=== PATIENT | male | born 1940 | race Two or more races ===

== ENCOUNTER 2024-05-31 12:43 | Inpatient (IN) | payer MEDICARE, BC, SELFPAY ==
[2024-05-31] VITALS (26 sets, daily range): BP systolic 79–135; BP diastolic 45–76; BMI 29.5
--- NOTE | 2024-05-31 11:12 | CON.CAR ---
Consultation
Consultation Request
Date/Time Consultation Performed: 05/31/24 1115AM
Performing Provider: ROSY Abel for Mark Gamboa MD
Reason for Consultation: non reversible symptomatic bradycardia, syncope
Medical History
-
Chief Complaint: bradycardia, syncope
History of Present Illness:
PCP: Rosita Barroso MD ([facility])
CDY: Marques Leong MD ([facility])
HPI: This is an 84 y/o [place]ian male, PMH sig for Chronic diastolic HFpEF 55-60%, HTN, HLD, RLD, Tracheomalacia, obesity.
Presented to [facility] ED after a syncopal episode at home. He was walking with walker and got dizzy, then passed out and fell backwards. He was unresponsive and EMS was called. Regained consciousness and denies any prior symptoms, including
cp/palps/dyspnea/sob/abdominal pain. In ED, EKG shows AFib 60s, which is new for this patient. Head CT with left mastoiditis but otherwise unremarkable.
While on tele, HR dropping to 20-30s, BP 60s, with associated weakness/fatigue/dyspnea at rest. Started on low dose dopamine with improvement of vitals and symptoms. Unable to wean off dopamine. Transferred now for PPM implant.
Echo 2/6- nml LVSF, EF 55-60%, no WMA, mild CLVH, mild dil RA, mod dil LA, mod TR, PASP 50, mod MAC w/trace MR
Past Medical History
Past Medical History: Arrhythmias (New onset AFib), CHF (Diastolic), HTN, Hypercholesterolemia, Hypothyroidism and Other (Restrictive lung disease, tracheomalacia, BLE edema, Pre-DM)
Past Surgical History: None
Social History
Tobacco: Non-Smoker
Alcohol: None
Drug: None
Living: With Family
Family History
Family History: Reviewed & Not Pertinent
Allergies / Home Medications
Allergy/AdvReac Type Severity Reaction Status Date / Time
No Known Allergies Allergy Verified 05/31/24 10:57
�Medication �Instructions �Recorded �Confirmed �Type
acetaminophen 500 mg capsule 500 mg PO DAILYPRN PRN pain score 05/31/24 05/31/24 History
1-3
albuterol sulfate 90 mcg/actuation 2 inh inhalation QID PRN 05/31/24 05/31/24 History
breath activated powder inhaler bronchospasm
(ProAir RespiClick)
atenolol 25 mg tablet 25 mg PO DAILY 05/31/24 05/31/24 History
atorvastatin 20 mg tablet 20 mg PO HS 05/31/24 05/31/24 History
cholecalciferol (vitamin D3) 50 50 mcg PO DAILY 05/31/24 05/31/24 History
mcg (2,000 unit) tablet
cyanocobalamin (vitamin B-12) 1,000 mcg PO DAILY 05/31/24 05/31/24 History
1,000 mcg tablet (Vitamin B-12)
esomeprazole magnesium 40 mg 40 mg PO DAILY 05/31/24 05/31/24 History
capsule,delayed release
fluticasone furoate 200 1 inh inhalation DAILY 05/31/24 05/31/24 History
mcg/actuation blister powder for
inhalation
furosemide 40 mg tablet 40 mg PO MOWEFR 05/31/24 05/31/24 History
gabapentin 100 mg capsule 100 mg PO DAILY 05/31/24 05/31/24 History
iron, carbonyl 45 mg tablet 45 mg PO DAILY 05/31/24 05/31/24 History
multivitamin with minerals-folic 1 tab PO DAILY 05/31/24 05/31/24 History
acid 80 mcg chewable tablet
(Centrum Adult 50 Plus)
polyethylene glycol 3350 17 gram 17 g PO DAILY 05/31/24 05/31/24 History
oral powder packet (Miralax)
spironolactone 50 mg tablet 50 mg PO DAILY 05/31/24 05/31/24 History
valsartan 160 mg tablet 160 mg PO BID 05/31/24 05/31/24 History
Review of Systems
-
History Source: Patient
All other systems: Negative unless noted
Constitutional: No Symptoms
EENT: No Symptoms
Respiratory: No Symptoms
Cardiac: No Symptoms
Abdomen/GI: No Symptoms
: No Symptoms
Musculoskeletal: No Symptoms
Skin: No Symptoms
Neurological: No Symptoms
Endocrine: No Symptoms
Hematologic/Lymphatic: No Symptoms
Physical Exam
Vital Signs
Vital Signs
Temp Pulse Resp BP Pulse Ox
97.4 F 73 18 118/56 97
05/31/24 11:05 05/31/24 11:22 05/31/24 11:22 05/31/24 11:22 05/31/24 11:15
Lab Results
05/31/24:
NA 130
K+ 4.3
BUN 16
Creat 0.72
Glucose 112
GFR >60
Pro BNP 1752
WBC 8.4
Hgb 12.0
Hct 35.2
Plt 173
Physical Exam
General: Well Developed and No Apparent Distress
HEENT: Normocephalic and Moist Mucous Membranes
Respiratory: Other (Scattered wheeze/rhonchi bilaterally, non labored)
Cardiac: S1/S2 and Irregular Rhythm
GI: Soft, Non Tender and Normal Bowel Sounds
Musculoskeletal: Edema (+1-2 bilat, non pitting)
Skin: Warm and Dry
Neuro: AO x 3
Psych: Calm
Impression / Plan
-
PCP: Rosita Barroso MD ([facility])
CDY: Marques Leong MD ([facility])
HPI: This is an 84 y/o [place]ian male, PMH sig for Chronic diastolic HFpEF 55-60%, HTN, HLD, Restrictive lung disease, tracheomalacia, obesity.
Presented to [facility] ED after a syncopal episode at home. He was walking with walker and got dizzy, then passed out and fell backwards. He was unresponsive and EMS was called. Regained consciousness and denies any prior symptoms, including
cp/palps/dyspnea/sob/abdominal pain. In ED, EKG shows AFib 60s, which is new for this patient. Head CT with left mastoiditis but otherwise unremarkable.
While on tele, HR dropping to 20-30s, BP 60s, with associated weakness/fatigue/dyspnea at rest. Started on low dose dopamine with improvement of vitals and symptoms. Unable to wean off dopamine. Transferred now for PPM implant.
IMPRESSION:
Syncope and collapse
Non reversible symptomatic bradycardia
New onset AFib
Chronic diastolic HFpEF
Chronic BLE edema
HTN
HLD
Pre-DM
Hyponatremia
Restrictive Lung Disease
Tracheomalacia
Sleep apnea
PLAN:
Syncope/Non reversible symptomatic bradycardia
HR 20s/BP 60s on dopamine- unable to wean off
dual chamber PPM implant today
NPO for now
hold atenolol until device implanted
incision check at [facility] next Monday, then follow with Dr. Leong thereafter
New onset AFib
[id number]
will need OAC at discharge- hold til after device implant
consider outpt cardioversion in a month per primary cards
Chronic diastolic HFpEF/chronic LE edema
stable on GDMT, will continue
+1-2 edema today with elevated PASP on echo- consider increasing lasix to daily
monitor lytes, chronic stable hyponatremia
Data Reviewed
-
EKG: Tracing Personally Visualized and interpreted
CT Scan: Report Reviewed by me
Medical Tests (Nuc Med, Echo etc): Report Reviewed by me
Labs: Labs Reviewed by me
Old Records: Reviewed
--- NOTE | 2024-05-31 12:48 | HPS.HSE ---
Family Physician
-
Family Physician: NO INTERVIEW UNKNOWN
Chief Complaint
-
syncope
History of Present Illness
84-year-old male past medical history of chronic HFpEF, hypertension, hyperlipidemia, restrictive lung disease, tracheomalacia, obstructive sleep apnea, obesity, GERD, chronic hyponatremia, prediabetes presented to [facility] [place] 2 days ago for
syncopal episode at home. He was walking with walker and got dizzy and passed out and fell backwards. EMS was called. Denied any chest pain or shortness of breath or nausea or vomiting or sweating or abdominal pain. In the emergency room he was
found to be in new onset atrial fibrillation with heart rate of 60s. While on telemetry his heart rate dropped to 20s to 30s blood pressure of 60s systolic with associated weakness and fatigue and shortness of breath. Started on dopamine drip with
improvement in symptoms. Dopamine was unable to be weaned off. He was transferred to [facility] for pacemaker.
He has had increased lower extremity edema but no weight gain.
He is complaining of pain in his legs bilaterally.
He denies any symptoms currently.
He drinks alcohol socially. Denies smoking.
His father had history of heart disease.
Medical History
Past Medical History
Past Medical History: Reports Other (chronic HFpEF, hypertension, hyperlipidemia, restrictive lung disease, tracheomalacia, obstructive sleep apnea, obesity, GERD, chronic hyponatremia, prediabetes )
Past Surgical History: Reports None
Social History
Tobacco: Non-smoker
Alcohol: Occasional
Drug: None
Family History
Family History: Not pertinent
Allergies / Home Medications
Allergies reflects when Allergies were last updated in [facility].
Home Medications with original date entered in [facility]
Allergy/Medication List:
Allergies
Allergy/AdvReac Type Severity Reaction Status Date / Time
No Known Allergies Allergy Verified 05/31/24 10:57
Home Medications
acetaminophen 500 mg capsule 500 mg PO DAILYPRN PRN pain score 1-3 05/31/24
albuterol sulfate 90 mcg/actuation breath activated powder inhaler (ProAir RespiClick) 2 inh inhalation QID PRN bronchospasm 05/31/24
atenolol 25 mg tablet 25 mg PO DAILY 05/31/24
atorvastatin 20 mg tablet 20 mg PO HS 05/31/24
cholecalciferol (vitamin D3) 50 mcg (2,000 unit) tablet 50 mcg PO DAILY 05/31/24
cyanocobalamin (vitamin B-12) 1,000 mcg tablet (Vitamin B-12) 1,000 mcg PO DAILY 05/31/24
esomeprazole magnesium 40 mg capsule,delayed release 40 mg PO DAILY 05/31/24
fluticasone furoate 200 mcg/actuation blister powder for inhalation 1 inh inhalation DAILY 05/31/24
furosemide 40 mg tablet 40 mg PO MOWEFR 05/31/24
gabapentin 100 mg capsule 100 mg PO DAILY 05/31/24
iron, carbonyl 45 mg tablet 45 mg PO DAILY 05/31/24
multivitamin with minerals-folic acid 80 mcg chewable tablet (Centrum Adult 50 Plus) 1 tab PO DAILY 05/31/24
polyethylene glycol 3350 17 gram oral powder packet (Miralax) 17 g PO DAILY 05/31/24
spironolactone 50 mg tablet 50 mg PO DAILY 05/31/24
valsartan 160 mg tablet 160 mg PO BID 05/31/24
Review of Systems
-
History Source: Patient
A 12 point ROS was completed and negative except as noted: Yes
Constitutional: Reports No Symptoms
EENT: Reports No Symptoms
Respiratory: Reports No Symptoms
Cardiac: Reports No Symptoms
Abdomen/GI: Reports No Symptoms
: Reports No Symptoms
Musculoskeletal: Reports No Symptoms
Skin: Reports No Symptoms
Neurological: Reports No Symptoms
Endocrine: Reports No Symptoms
Hematologic/Lymphatic: Reports No Symptoms
Psych: Reports No Symptoms
Physical Exam
Vital Signs
Vital Signs
Temp Pulse Resp BP Pulse Ox
97.4 F 73 18 118/56 97
05/31/24 11:05 05/31/24 11:22 05/31/24 11:22 05/31/24 11:22 05/31/24 11:15
Physical Exam
General: Well Developed, Well Nourished and No Apparent Distress
HEENT: NormoCephalic, Moist mucous membranes and Atraumatic
Respiratory: Clear
Cardiac: S1/S2 and Regular Rhythm; No Murmur or Rub
GI: Soft, Non Tender, Non Distended and Normal Bowel Sounds; No Organomegaly
Rectal: Deferred by Provider
Musculoskeletal: No Clubbing, No Cyanosis and No Edema
Skin: No Rash
Neuro: Nonfocal/grossly intact
Data Reviewed
-
Lab Data: Labs Reviewed by me
Old Records: Reviewed
Impression/Plan
-
IMPRESSION:
PLAN:
# Syncope secondary to persistent symptomatic bradycardia associated with hypotension
-On dopamine drip
-Plan for pacemaker shortly
-N.p.o.
-Hold atenolol
# New onset atrial fibrillation
-[id number] score of 5
-Was on heparin drip at [facility] [place], currently off
-Will need oral anticoagulation at discharge to be started after device implantation as per cardiology
# Pseudohyperkalemia
-Hemolyzed potassium on prior labs
-Check labs after pacemaker
# Mild transaminitis on lab
-Could be due to hepatic venous congestion
-Ultrasound was considered
-Noted at [place]
-Continue to monitor
Chronic HFpEF
-Resume Lasix after pacemaker implantation and off dopamine
-Resume spironolactone, valsartan, after pacemaker
Essential hypertension
-Hold spironolactone, valsartan for now
Hyperlipidemia
-Continue statin
Restrictive lung disease
Tracheomalacia
Obstructive sleep apnea
-Uses CPAP at night
Prediabetes
-Not on medication
Obesity
GERD
-Continue esomeprazole
Chronic hyponatremia
Full code
DVT prophylaxis�heparin
N.p.o.
--- NOTE | 2024-05-31 13:53 | ITS.CL.PACE ---
Addendum entered and electronically signed by Raimundo Cervantes MD 05/31/24 16:58:
Right heart catheterization findings :
HEMODYNAMIC FINDINGS (mmHg):
RA(a,v,m): *, 16, 13 patient atrial fibrillation
RV(s/d,EDP): 72/6, 16
PA(s/d/m): 72/28, 45
PCWP(a,v,m): *, 40, 24
Oxygen Saturations (mg/dl):
PA: 75% on 2 L of oxygen by nasal cannula
LV: 97% on 2 L of oxygen by nasal cannula
Cardiac Output/Index (l/min / l/min/m2):
Estimated Rosie Method: 5.0 / 3.1
Original Note:
[facility] - Pacemaker Implant
Pacemaker Implant
Procedure Report:
PACEMAKER IMPLANT REPORT
Primary Care Provider: Dr. Rosita Barroso
Primary Slag Mixer: Dr. Koffi Munoz
Date of Procedure: May 31, 2024
Procedure:
1: Implantation of dual-chamber permanent pacemaker utilizing the left bundle branch for conduction system pacing
2: Right heart catheterization
Indication/Diagnosis:
1: Non-reversible symptomatic bradycardia due to symptomatic bradycardia in the setting of new atrial fibrillation with unexplained syncope
HISTORY: The patient is a 84-year-old man who is typically followed by the [facility] office for hypertension and diastolic heart failure who presented to [facility] with syncope and was found to be in new atrial fibrillation with a
slow ventricular response. Atenolol was and the patient had persistent profound bradycardia ultimately requiring a dopamine drip to keep the heart rate and blood pressure up. He is referred for dual-chamber pacemaker placement for persistent
profound symptomatic bradycardia off rate controlling drugs.
Antibiotic: Ancef 2 g IV
Sedation: Conscious sedation per anesthesia staff
After informed consent was obtained, 'time out' was called and confirmed, the patient was prepped and draped in a sterile fashion. Lidocaine with epi was used for local anesthesia. Central venous access was obtained via subclavian venipuncture. An
incision was made along the left chest and a pre-pectoral pocket was formed. Using a Seldinger technique and peel-away sheaths, the pacing leads were placed under fluoroscopic guidance.
Fluoroscopy was used to determine likely anatomic site for left bundle branch pacing. The Medtronic C315 sheath was used to deliver the Medtronic 3830 Selectsecure pacing lead with the helix exposed just exposed from the sheath tip during continuous
monitoring when pacemapping the septum during gentle clockwise rotation to obtain a paced QRS morphology of a W pattern in lead V1. Once the suspected optimal site was identified, lead deployment was performed with several rapid rotations as paced
QRS morphology was intermittently monitored until a paced QRS complex in lead V1 demonstrated development of an R wave (qR or rSR).
Final unipolar pacing impedance is 969 ohms
Unipolar pacing threshold is stable at 1.0 V @0.4 ms.
Final conduction system paced QRS complex duration is 92 ms
LVAT is 69 ms and peak V5 -> peak V1 timing is 47 ms
Right atrial lead was placed at the RAA.
Once testing (see below) showed adequate and stable function, the leads were secured using the suture sleeves. The pocket was liberally irrigated with antibiotic solution. The leads were connected to the generator header and the leads and
generator were placed within the pocket. Fluoroscopy confirmed stable lead position. The pocket was closed in the typical fashion.
Fluoroscopy Time (min): 7.6
Radiation Dose (mGy): 3.36
DAP (Gy.cm2): 26.97
IMPLANTS:
Medtronic [id number], SN: [id number], Left Pectoral
RA: Medtronic 5076-45, SN: [id number], RAA
RV: Medtronic 3830 , SN:[id number], Interventricular septum at LBB
DEVICE TESTING:
Sensing: RA 0.8mV[afib], RV 5.6 mV
Capture: RA [afib], RV 1.0 V@0.4ms
Ohms: RA 532, RV 969
FINAL PROGRAMMING
Tyrone Pacing: AAIR+ 60-130 ppm
COMPLICATIONS: None.
CONCLUSIONS:
1: Successful implant of dual chamber permanent pacemaker utilizing Left Bundle Branch conduction system capture for pacing. Overall findings are most consistent with LBB capture.
RECOMMENDATIONS:
1. Post-op care (tele, CXR, IV abx)
2. In-Office wound check on Monday 10:45AM with Dr. Cervantes at [place] [facility]. Will plan to start eliquis Monday if pocket ok.
3. Follow-up with Dr. Koffi Munoz at [facility] office on 06/18/24 at 11:20AM.
Copy to: Dr. Rosita Barroso, Dr. Koffi Munoz
[2024-05-31 14:28] LABS: Glucose - Point of Care 104 mg/dl (70-99)
--- NOTE | 2024-05-31 16:41 | PTCARENOTE ---
Addendum entered by Alejandra Allred RN 05/31/24 16:45:
Underlying Afib is noted on the monitor
Original Note:
Received the patient from the concrete plant laborer in his bed. The patient is aaox3, vss, v-pacing is noted on the monitor. His left chest wall dressing is c/d/i. He has no complaints of pain at his PPM site. He does complain of soreness and stiffness in his BL
legs. I instructed the patient on his activity restrictions and expected oob time. I oriented him to his room and his call burns is within reach. His family is at his bedside.
--- NOTE | 2024-05-31 16:58 | CM ---
Reviewed chart. Met with Mr. Velez and his children to review discharge plans. He states prior to admission he resides with his children in a two story home with two steps to enter. He states he has a full flight of steps to get to bedroom/full
bathroom. He states he has a powder room on the first floor. He states prior to admission he was ambulation with a walker. He states he has a walker at home. He states he has had [facility] in the recent past. His family has requested to go with
a different [facility] Services. They have selected [facility]. Telephone call to [facility] to make the referral. Sent referral. Medical work-up in progress. The discharge plan is to return home with his children and [facility] when medically stable.
[2024-05-31] MEDS: HEPARIN 5000 UNITS SC (20:16)
--- NOTE | 2024-05-31 21:10 | PTCARENOTE ---
Received patient at change of shift. Patient sitting in bed, finishing dinner, oriented x3. Left side chest wall-- no ecchymosis, no swelling-- gauze and Tegaderm clean, dry, and intact. Immobilizer on. BP 109/63, A-fib with V-pacing 70s, 100% on
room air. Discussed the importance of needing to get out of bed. Patient verbalized agreement and wants to attempt to get up tonight with aide of RN. Discussed rest of plan of care for evening. Patient verbalized understanding. Call burns within
reach.
[2024-05-31] MEDS: LIPITOR 20 MG PO (22:02)
[2024-05-31] MEDS: ANCEF 5 IV (22:02)
[2024-06-01] VITALS (9 sets, daily range): BP systolic 86–124; BP diastolic 53–89; PULSE 70; O2SAT 99; BMI 33.5
--- NOTE | 2024-06-01 00:52 | PTCARENOTE ---
Pt attempted to get up to use the bathroom with the assistance of RN. Was not able to walk forward. Stood bedside with RN for a couple of minutes. Pt very weak and stiff. Discussed doing some leg exercises in bed. Patient verbalized wanting to try.
[2024-06-01 04:10] LABS: ALT (SGPT) 27 U/L (0-50); AST (SGOT) 25 U/L (17-59); Alkaline Phosphatase 107 U/L (38-126); Blood Urea Nitrogen 25 mg/dl (9-20); Calcium 9.4 mg/dl (8.4-10.2); Carbon Dioxide 23 mmol/L (22-30); Chloride 99 mmol/L (98-107); Estimated Creatinine Clearance 53 ml/min; Glucose 99 mg/dl (70-99); Potassium 5.2 mmol/L (3.5-5.1); Sodium 128 mmol/L (135-145); Total Bilirubin 0.9 mg/dl (0.2-1.3); Total Protein 5.6 g/dl (6.3-8.2); eGFR > 60.00
[2024-06-01] MEDS: ANCEF 5 IV (06:00)
[2024-06-01 06:09] LABS: % Basophils 0.2 % (0-2); % Eosinophils 0.5 % (0-6); % Immature Granulocytes 0.5 % (0-0.5); % Lymphocytes 16.5 % (20.5-51.1); % Monocytes 13.7 % (1.7-9.3); % Neutrophils 68.6 % (42.2-75.2); Absolute Lymphocytes 1.1 10^3/uL (1.2-3.4); Absolute Monocytes 0.9 10^3/uL (0.1-0.6); Absolute Neutrophils 4.4 10^3/uL (1.4-6.5); Hematocrit 30.5 % (39.0-52.0); Hemoglobin 10.5 g/dL (13.0-18.0); Mean Corp Hgb Conc. 34.4 g/dL (33.0-37.0); Mean Corpuscular Hgb 30.6 pg (27.0-31.0); Mean Corpuscular Volume 88.9 fL (80.0-94.0); Nucleated Red Blood Cells % 0 % (-); Platelet Count 151 10^3/uL (130-400); Red Blood Cell Count 3.43 10^6/uL (4.70-6.10); Red Cell Dist. Width 13.9 % (11.5-14.5); White Blood Cell Count 6.4 10^3/uL (4.8-10.8)
[2024-06-01] MEDS: FEOSOL 325 MG PO (08:33)
[2024-06-01] MEDS: VITAMIN D3 (cholecalciferol) 50 MCG PO (08:33)
[2024-06-01] MEDS: MIRALAX 17 GRAMS PO (08:33)
[2024-06-01] MEDS: THERAGRAN 1 TABLET PO (08:33)
[2024-06-01] MEDS: VITAMIN B-12 1000 MCG PO (08:33)
[2024-06-01] MEDS: PROTONIX 40 MG PO (08:33)
[2024-06-01] MEDS: HEPARIN 5000 UNITS SC ×2 (08:34→21:14)
[2024-06-01] MEDS: NEURONTIN 100 MG PO (08:36)
[2024-06-01] MEDS: TYLENOL 500 MG PO (08:43)
[2024-06-01 08:51] LABS: Blood Urea Nitrogen 27 mg/dl (9-20); Calcium 9.2 mg/dl (8.4-10.2); Carbon Dioxide 25 mmol/L (22-30); Chloride 101 mmol/L (98-107); Estimated Creatinine Clearance 47 ml/min; Glucose 84 mg/dl (70-99); Potassium 4.8 mmol/L (3.5-5.1); Sodium 130 mmol/L (135-145); eGFR > 60.00
--- NOTE | 2024-06-01 08:58 | PTCARENOTE ---
The patient is aaox3, vital signs are stable. V-pacing with an underling afib is noted on the monitor. I removed his Tegaderm and gauze dressing over his pacemaker site per Dr. Cervantes's instructions last night at the bedside. He complains of not
being able to move his legs. I removed his socks and he was able to move his feet and toes but stated that he couldn't move his legs due to soreness and weakness. I asked him why he takes gabapentin and he said because 'of my feet pinching.' Tylenol
given for his leg pain along with his gabapentin as ordered.
--- NOTE | 2024-06-01 09:40 | PTCARENOTE ---
Assisted the patient to the chair with a rolling walker. He was a heavy assist x2. He has a shuffling gait and needed contact guarding throughout the transfer.
--- NOTE | 2024-06-01 12:10 | W.PN.HOSP.TC ---
Today's Communication/Plan
-
PT/OT for DC dispo
Assessment / Plan
Assessment / Plan
84yo M with PMHx of HLD, HTN, tracheomalacia, COPD, GERD, HFpEF, SALU, chronic hyponatremia admitted to [facility] for syncope, found new onset Afib with slow ventricular responce and transfered to for PPM, which was placed on 06/01/24 and confirmed
functioning appropriatly.
A/P:
#Afib with slow ventricular responce
s/p PPM
telemetry
start DOAC as per cardio: hold until 06/03/24 when cardio will chack his incision
#Ambulatory deficiency
PT/OT
#Chronic hyponatremia
#Chronic HFpEF
#SAUL
#COPD not in exacerbation
#HLD
#Essential HTN
cont home meds
#Mild anemia
ouptatient follow up with PCP
DVT ppx SCDs
Full code
I have spent at least 58min reviewing chart, test results, communication with consultants and direct patient care
Anticipated Discharge: Within 24 hours
Subjective/Interval History
-
Date of Service: June 01, 2024
Objective Data
-
Labs:
Laboratory Results
06/01/24 06/01/24 06/01/24
03:08 05:55 08:29
WBC Cancelled 6.4
Hgb Cancelled 10.5 L
Hct Cancelled 30.5 L
Plt Count Cancelled 151
Sodium 128 L 130 L
Potassium 5.2 H 4.8
Chloride 99 101
Carbon Dioxide 23 25
BUN 25 H 27 H
Creatinine 0.8 0.9
Glucose 99 84
Calcium 9.4 9.2
Total Bilirubin 0.9
AST 25
ALT 27
Alkaline Phosphatase 107
Vital Signs:
Vital Signs
Temp Pulse Resp BP Pulse Ox
97.6 F 76 18 109/68 97
06/01/24 08:15 06/01/24 08:30 06/01/24 08:15 06/01/24 08:18 06/01/24 08:45
I&O
05/31/24 06/01/24 06/02/24
06:59 06:59 06:59
Output Total 200 / 200
Balance -200 / -200
Review of Systems
-
History Source: Patient
All other systems: Reviewed and negative
Physical Exam
-
General: No Apparent Distress
Neuro: Awake, Alert, Oriented and AO x 3
Psych: Calm
[2024-06-01] MEDS: TENORMIN PO (12:41)
--- NOTE | 2024-06-01 14:18 | W.PN.CARDCBS ---
Today's Communication / Plan
-
Pacemaker is functioning normally
Resume atenolol
Eliquis after incision check on 06/03
We will sign off, please recall as needed
Impression / Plan
-
PCP: Rosita Barroso MD ([facility])
CDY: Marques Leong MD ([facility])
HPI: This is an 84 y/o male, PMH sig for Chronic diastolic HFpEF 55-60%, HTN, HLD, Restrictive lung disease, tracheomalacia, obesity.
Presented to [facility] ED after a syncopal episode at home. He was walking with walker and got dizzy, then passed out and fell backwards. He was unresponsive and EMS was called. Regained consciousness and denies any prior symptoms, including
cp/palps/dyspnea/sob/abdominal pain. In ED, EKG shows AFib 60s, which is new for this patient. Head CT with left mastoiditis but otherwise unremarkable.
While on tele, HR dropping to 20-30s, BP 60s, with associated weakness/fatigue/dyspnea at rest. Started on low dose dopamine with improvement of vitals and symptoms. Unable to wean off dopamine. Transferred now for PPM implant.
IMPRESSION:
Syncope and collapse
Non reversible symptomatic bradycardia
New onset AFib
Chronic diastolic HFpEF
Chronic BLE edema
HTN
HLD
Pre-DM
Hyponatremia
Restrictive Lung Disease
Tracheomalacia
Sleep apnea
PLAN:
Syncope/Non reversible symptomatic bradycardia
HR 20s/BP 60s on dopamine- unable to wean off
Underwent dual chamber PPM implant 05/31/23, device is functioning normally
Ok to resume atenolol
Incision check at [facility] Saturday 06/03, then follow with Dr. Leong thereafter
New onset AFib- start Eliquis 5mg BID after incision check 06/03
Stable for discharge from my perspective, we will sign off
Patient should follow-up with [facility] and then subsequently with his primary geologic technician
Progress Note - Tear Down Worker
Subjective
Date of Service: June 01, 2024
No acute overnight events. Patient is resting comfortably in bed. No cardiac complaints.
Objective
Labs:
06/01/24 05:55
06/01/24 08:29
Labs
Hgb 10.5 g/dL (13.0-18.0) L 06/01/24 05:55
Hct 30.5 % (39.0-52.0) L 06/01/24 05:55
Plt Count 151 10^3/uL (130-400) 06/01/24 05:55
Sodium 130 mmol/L (135-145) L 06/01/24 08:29
Potassium 4.8 mmol/L (3.5-5.1) 06/01/24 08:29
BUN 27 mg/dl (9-20) H 06/01/24 08:29
Creatinine 0.9 mg/dL (0.7-1.3) 06/01/24 08:29
Glucose 84 mg/dl (70-99) 06/01/24 08:29
Vital Signs and I&O:
Vital Signs
Temp Pulse Resp BP Pulse Ox
97.8 F 85 16 96/59 99
06/01/24 12:20 06/01/24 12:00 06/01/24 12:20 06/01/24 11:59 06/01/24 12:20
Vital Signs
Temp Pulse Resp BP Pulse Ox
97.8 F 85 16 96/59 99
06/01/24 12:20 06/01/24 12:00 06/01/24 12:20 06/01/24 11:59 06/01/24 12:20
Intake & Output
05/30/24 05/31/24 06/01/24 06/02/24
06:59 06:59 06:59 06:59
Output Total 200 / 200
Balance -200 / -200
Physical Exam
Physical Exam
Gen: NAD, AAOx3
HEENT: NC/AT, sclera anicteric
Neck: No JVD
CV: RRR, NL s1/s2
Lungs: CTAB
Abd: S/obese
Ext: Nonpitting LE edema
Skin: Warm, dry, pacemaker pocket clean dry intact
Neuro: Non-focal
--- NOTE | 2024-06-01 16:17 | PTCARENOTE ---
Patient received from Ryanne RN at 1000; AAOx3, responds spontaneously to RN and follows commands; B/L LE Neuropathy; VSS; V-paced with afib on monitor; Left PPM settings AAIR 60-130; +2 B/L LE edema; +2 DP and radial pulses; Lungs clear; MOTT;
SpO2 96-100% on RA; Normoactive BS - had BM in bathroom this afternoon; Patient urinating clear, yellow urine in bathroom and urinal; Brown PVD legs, Left chest wall incision covered with steristrips and DELMY; PIVx2 #22 RAC and #22 left wrist; PT/OT
ordered for patient due to weakness/unsteady gait; PO Atenolol held this afternoon due to SBP < 100; See nursing documentation for further information
[2024-06-01] MEDS: LIPITOR 20 MG PO (21:14)
--- NOTE | 2024-06-01 21:44 | PTCARENOTE ---
Received patient at change of shift. Patient A&Ox3, sitting in bed, eating. Left chest wall [employer] with steri strips. No swelling, ecchymosis, and soft to touch. BP 124/55, V-Paced with underlying A-Fib 70s, 99% on room air. Pt denies SOB. States
feeling much better today than yesterday. Discussed plan of care for evening. Patient verbalized understanding. Call burns within reach.
[2024-06-02] VITALS (8 sets, daily range): BP systolic 105–145; BP diastolic 57–90; PULSE 70; O2SAT 95; BMI 33.4
[2024-06-02] MEDS: FEOSOL 325 MG PO (08:27)
[2024-06-02] MEDS: NEURONTIN 100 MG PO (08:27)
[2024-06-02] MEDS: VITAMIN D3 (cholecalciferol) 50 MCG PO (08:27)
[2024-06-02] MEDS: HEPARIN 5000 UNITS SC ×2 (08:27→20:04)
[2024-06-02] MEDS: PROTONIX 40 MG PO (08:28)
[2024-06-02] MEDS: THERAGRAN 1 TABLET PO (08:28)
[2024-06-02] MEDS: TENORMIN 25 MG PO (08:32)
[2024-06-02] MEDS: MIRALAX PO (08:33)
[2024-06-02] MEDS: VITAMIN B-12 1000 MCG PO (08:36)
--- NOTE | 2024-06-02 11:07 | W.PN.HOSP.TC ---
Today's Communication/Plan
-
CM for rehab
Assessment / Plan
Assessment / Plan
84yo M with PMHx of HLD, HTN, tracheomalacia, COPD, GERD, HFpEF, SAUL, chronic hyponatremia admitted to [facility] for syncope, found new onset Afib with slow ventricular response and transferred to for PPM, which was placed on 06/01/24 and confirmed
functioning appropriately. Eliquis to be reatrted on 06/03/24 after incision check. CM for rehab. medically stable for d/c
A/P:
#Afib with slow ventricular responce
s/p PPM
telemetry
start DOAC as per cardio: hold until 06/03/24 when cardio will chack his incision
#Ambulatory deficiency
PT/OT
#Chronic hyponatremia
#Chronic HFpEF
#SAUL
#COPD not in exacerbation
#HLD
#Essential HTN
cont home meds
#Mild anemia
ouptatient follow up with PCP
DVT ppx SCDs
Full code
I have spent at least 38min reviewing chart, test results, communication with consultants and direct patient care
Anticipated Discharge: Within 24 hours
Subjective/Interval History
-
Date of Service: June 02, 2024
Objective Data
-
Vital Signs:
Vital Signs
Temp Pulse Resp BP Pulse Ox
98.0 F 84 20 121/65 99
06/02/24 04:12 06/02/24 08:32 06/02/24 04:12 06/02/24 08:32 06/02/24 04:12
I&O
06/01/24 06/02/24 06/03/24
06:59 06:59 06:59
Output Total 200 / 200 250 / 250
Balance -200 / -200 -250 / -250
Review of Systems
-
History Source: Patient
All other systems: Reviewed and negative
Physical Exam
-
General: No Apparent Distress
HEENT: Normocephalic
Cardiac: Regular Rhythm
GI: Soft, Nontender and Nondistended
Neuro: Awake, Alert, Oriented and AO x 3
Psych: Calm
--- NOTE | 2024-06-02 12:23 | W.DCSUMMARY ---
Discharge Summary
Discharge Data
Date of Admission: 05/31/24
Date of Discharge: 06/02/24
-
Pending Results: No
Hospital Course
84yo M with PMHx of HLD, HTN, tracheomalacia, COPD, GERD, HFpEF, SAUL, chronic hyponatremia admitted to [facility] for syncope, found new onset Afib with slow ventricular response and transferred to for PPM, which was placed on 06/01/24 and confirmed
functioning appropriately. Eliquis to be started on 06/03/24 after incision check. CM for rehab. medically stable for d/c
I have spent at least 38min reviewing chart, test results, communication with consultants and direct patient care
Patient was managed for:
#Afib with slow ventricular responce
#Ambulatory deficiency
#Chronic hyponatremia
#Chronic HFpEF
#SAUL
#COPD not in exacerbation
#HLD
#Essential HTN
#Mild anemia
Discharge Plan
-
Patient Disposition: Residential/SNF
Discharge Diagnosis/Procedures: Pacemaker implant
Diet: Low Cholesterol
Driving Restrictions: No driving for 1 week
Bathing Restrictions: OK to Shower
Stand Alone Forms: DC Inst - Implanted Device
Referrals:
[facility] [Other] (Fax number is [phone]. )
[facility] [Provider Group] - 06/03/24 10:45 am (Post device wound check appointment)
Koffi Munoz DO [Non-Admitting Privileges] - 06/18/24 11:20 am (Cardiology followup appointment (Dr. Leong is retiring))
Rosita Barroso MD [Non-Admitting Privileges] - in one to two months
Additional Discharge Medication Instructions: Incision check at [facility] Saturday 06/03, then follow with Dr. Leong thereafter
Prescriptions:
New
Eliquis 5 mg tablet
5 mg PO BID Qty: 60 0RF
Rx Instructions:
start after your incision will be checked in [facility] on 06/03/24
Continued
furosemide 40 mg Tablet
40 mg PO MOWEFR
atorvastatin 20 mg Tablet
20 mg PO HS
polyethylene glycol 3350 [Miralax] 17 gram Powder In Packet
17 g PO DAILY
atenolol 25 mg Tablet
25 mg PO DAILY
cyanocobalamin (vitamin B-12) [Vitamin B-12] 1,000 mcg Tablet
1,000 mcg PO DAILY
esomeprazole magnesium 40 mg Capsule,Delayed Release(Dr/Ec)
40 mg PO DAILY
gabapentin 100 mg Capsule
100 mg PO DAILY
acetaminophen 500 mg Capsule
500 mg PO DAILYPRN PRN (Reason: pain score 1-3)
spironolactone 50 mg Tablet
50 mg PO DAILY
valsartan 160 mg Tablet
160 mg PO BID
iron, carbonyl 45 mg Tablet
45 mg PO DAILY
cholecalciferol (vitamin D3) 50 mcg (2,000 unit) Tablet
50 mcg PO DAILY
fluticasone furoate 200 mcg/actuation Blister With Device
1 inh INHALATION DAILY
ProAir RespiClick 90 mcg/actuation Aerosol Powdr Breath Activated
2 inh INHALATION QID PRN (Reason: bronchospasm)
Centrum Adult 50 Plus 80 mcg Tablet,Chewable
1 tab PO DAILY
Discharge Orders:
Discharge Patient (As Directed); Ordered 06/02/24
Ordered By: Neville Gregg
Care Plan Goals
Care Plan Goals:
Problem: Readiness for enhanced knowledge related to diagnosis and treatment plan
Goal: Understand your diagnosis and treatment plan needs, including medications if applicable.
Instructions: Know your diagnosis, underlying causes and treatment plan options, including medications if applicable. Consult with your health care team to learn about your diagnosis and treatment plan, including medications if applicable.
Discharge Date and Time
Print Language: FAROESE
--- NOTE | 2024-06-02 18:14 | PTCARENOTE ---
pt continues to be paced/fib on the monitor, hr in the 70s, vss. pt offers no complaints at this time. pt oob to chair for most of the day, max assist w/ rw. pt tolerated well. pt and family educated on plan of care and both verbalized
understanding. call burns within reach.
[2024-06-02] MEDS: LIPITOR 20 MG PO (22:10)
[2024-06-03] VITALS (8 sets, daily range): BP systolic 95–137; BP diastolic 57–76; PULSE 71; BMI 33.5
[2024-06-03] MEDS: PROTONIX 40 MG PO (07:57)
[2024-06-03] MEDS: NEURONTIN 100 MG PO (07:57)
[2024-06-03] MEDS: VITAMIN D3 (cholecalciferol) 50 MCG PO (07:58)
[2024-06-03] MEDS: TENORMIN 25 MG PO (08:00)
[2024-06-03] MEDS: FEOSOL 325 MG PO (08:05)
[2024-06-03] MEDS: THERAGRAN 1 TABLET PO (08:05)
[2024-06-03] MEDS: MIRALAX 17 GRAMS PO (08:11)
[2024-06-03] MEDS: TYLENOL 500 MG PO (08:11)
[2024-06-03] MEDS: HEPARIN 5000 UNITS SC (08:13)
[2024-06-03] MEDS: VITAMIN B-12 1000 MCG PO (08:13)
--- NOTE | 2024-06-03 11:00 | CM ---
Addendum entered by Zeny Corea 06/03/24 17:32:
Transfer on hpld for today. Updated [facility] and family.
Addendum entered by Zeny Corea 06/03/24 15:33:
Unit sec. made ambulance arrangements with [facility] for 5:30 p.m. Updated [facility] regarding discharge date and time.
Addendum entered by Zeny Corea 06/03/24 15:32:
Unit Sec. made ambulance arrangements with [facility] for a 5:30 p.m. trabsfer rashmi and katie.
Addendum entered by Zeny Corea 06/03/24 14:46:
Received call back from [facility], [facility] and [facility] who do not have an available bed. [facility] can offer a bed and take today if medically stable. The telephone number for report is [phone] and
the fax number is [phone]. Updated
family and patient. Medical work-up in progress. The discharge plan is to go to [facility] when medically stable.
Original Note:
Reviewed chart. Met with Mr Velez and his family to review discharge plans. Reviewed medical team recommendation of SNF/Rehab. Gave them the list of SNF/Rehab. to review. Family has selected the following SNF's to check om bed availability:
[facility], [facility], [facility] and [facility]. Telephone call to the above SNF's admissions to check on bed availability. Left message. Sent the referrals. Awaiting call back to see if any bed available. Medical
work-up in progress. The discharge plan is to go to SNF/Rehab. when bed available.
--- NOTE | 2024-06-03 11:26 | PTCARENOTE ---
Pt OOB to chair with assist of 2. He is able to bear weight but has pain in his back and bilat LE with movt. He has a lrg healing bruise above sacrum.
[2024-06-03 13:20] LABS: Hematocrit 31.9 % (39.0-52.0); Hemoglobin 11.1 g/dL (13.0-18.0); Mean Corp Hgb Conc. 34.8 g/dL (33.0-37.0); Mean Corpuscular Hgb 30.5 pg (27.0-31.0); Mean Corpuscular Volume 87.6 fL (80.0-94.0); Mean Platelet Volume 10.9 fL (7.4-10.4); Platelet Count 153 10^3/uL (130-400); Red Blood Cell Count 3.64 10^6/uL (4.70-6.10); Red Cell Dist. Width 13.5 % (11.5-14.5); White Blood Cell Count 11.1 10^3/uL (4.8-10.8)
[2024-06-03 13:36] LABS: Blood Urea Nitrogen 29 mg/dl (9-20); Calcium 9.2 mg/dl (8.4-10.2); Carbon Dioxide 22 mmol/L (22-30); Chloride 94 mmol/L (98-107); Estimated Creatinine Clearance 56 ml/min; Glucose 127 mg/dl (70-99); Potassium 4.9 mmol/L (3.5-5.1); Sodium 126 mmol/L (135-145); eGFR > 60.00
--- NOTE | 2024-06-03 14:38 | W.PN.HOSP.TC ---
Today's Communication/Plan
-
resume lasix, f/u bmp
start eliquis after incision check
f/u cards, pcp outpt
Assessment / Plan
Assessment / Plan
84yo M with PMHx of HLD, HTN, tracheomalacia, COPD, GERD, HFpEF, SAUL, chronic hyponatremia admitted to [facility] for syncope, found new onset Afib with slow ventricular response and transferred to for PPM, which was placed on 06/01/24 and confirmed
functioning appropriately. Eliquis to be reatrted on 06/03/24 after incision check. for rehab. medically stable for d/c
A/P:
#Afib with slow ventricular response
s/p PPM
telemetry
start DOAC
#Ambulatory deficiency
PT/OT
#Chronic hyponatremia - monitor; resume lasix, fluid restriction
#Chronic HFpEF
#SAUL
#COPD not in exacerbation
#HLD
#Essential HTN
cont home meds
#Mild anemia
ouptatient follow up with PCP
DVT ppx eliquis
Full code
More than 30 minutes spent in discharge including
Final examination of the patient
Summarizing hospital stay
Instructions for continuing care to all relevant caregivers
Preparation of discharge records, prescriptions, and referral forms
Total time spent (37 in minutes):
Anticipated Discharge: Today
Subjective/Interval History
-
Date of Service: June 03, 2024
no acute events
Objective Data
-
Labs:
Laboratory Results
06/03/24 06/03/24
13:10 14:37
WBC 11.1 H
Hgb 11.1 L
Hct 31.9 L
Plt Count 153
Sodium 126 L Pending
Potassium 4.9 Pending
Chloride 94 L Pending
Carbon Dioxide 22 Pending
BUN 29 H Pending
Creatinine 0.8 Pending
Glucose 127 H Pending
Calcium 9.2 Pending
Vital Signs:
Vital Signs
Temp Pulse Resp BP Pulse Ox
98.1 F 70 18 102/61 98
06/03/24 11:15 06/03/24 03:38 06/03/24 11:15 06/03/24 03:38 06/03/24 11:15
I&O
06/02/24 06/03/24 06/04/24
06:59 06:59 06:59
Intake Total 960 / 960
Output Total 250 / 250 1000 / 1000
Balance -250 / -250 -40 / -40
Review of Systems
-
History Source: Patient
All other systems: Not reviewed unless documented
Physical Exam
-
General: No Apparent Distress
HEENT: Normocephalic
Cardiac: Regular Rhythm
GI: Soft, Nontender and Nondistended
Neuro: Awake, Alert, Oriented and AO x 3
Psych: Calm
Data Reviewed
-
Diagnostic Radiology: Report Reviewed by me
Labs: Labs Reviewed by me
[2024-06-03] MEDS: FLOVENT 110 MCG INHALER INH (14:47)
--- NOTE | 2024-06-03 14:47 | W.DS.TRANS ---
DC Summary - Sugar Trucker
-
Discharge Instructions:
Discharge Diagnosis/Procedures Pacemaker implant
Diet Low Cholesterol,Low Fat
Driving Restrictions No driving for 1 week
Bathing Restrictions OK to Shower
Blood Work cbc and bmp in 3-5 days
Instructions:
Stand-Alone Forms: DC Inst - Implanted Device
Changes to Home Medications: Yes
Discharge Medications:
DC Medications w/original date entered in [employer]
acetaminophen 500 mg capsule 500 mg PO DAILYPRN PRN pain score 1-3 05/31/24
albuterol sulfate 90 mcg/actuation breath activated powder inhaler (ProAir RespiClick) 2 inh inhalation QID PRN bronchospasm 05/31/24
atenolol 25 mg tablet 25 mg PO DAILY Blood Pressure 05/31/24
atorvastatin 20 mg tablet 20 mg PO HS High Cholesterol 05/31/24
cholecalciferol (vitamin D3) 50 mcg (2,000 unit) tablet 50 mcg PO DAILY Supplement 05/31/24
cyanocobalamin (vitamin B-12) 1,000 mcg tablet (Vitamin B-12) 1,000 mcg PO DAILY Supplement 05/31/24
esomeprazole magnesium 40 mg capsule,delayed release 40 mg PO DAILY Gastrointestinal Issue 05/31/24
fluticasone furoate 200 mcg/actuation blister powder for inhalation 1 inh inhalation DAILY Lung/Breathing Issues 05/31/24
furosemide 40 mg tablet 40 mg PO MOWEFR Fluid Retention/Swelling 05/31/24
gabapentin 100 mg capsule 100 mg PO DAILY Pain 05/31/24
iron, carbonyl 45 mg tablet 45 mg PO DAILY Supplement 05/31/24
multivitamin with minerals-folic acid 80 mcg chewable tablet (Centrum Adult 50 Plus) 1 tab PO DAILY Supplement 05/31/24
polyethylene glycol 3350 17 gram oral powder packet (Miralax) 17 g PO DAILY Constipation 05/31/24
spironolactone 50 mg tablet 50 mg PO DAILY Heart Failure 05/31/24
valsartan 160 mg tablet 160 mg PO BID Blood Pressure 05/31/24
apixaban 5 mg tablet (Eliquis) 5 mg PO BID #60 tabs 06/02/24
Home Medication Changes
apixaban 5 mg tablet (Eliquis) 5 mg PO BID #60 tabs 06/02/24
Pending Results: No
--- NOTE | 2024-06-03 15:02 | W.PN.UPDATE ---
Update Note
Progress Note Update
Left anterior chest wall incision checked. Steri-Strips intact, no active drainage, no hematoma. Patient was supposed to see Dr. Cervantes today for incision check and to start Eliquis (pt w/ syncope, found to have new onset afib w/ slow ventric
response/ bradycardia requiring pacer), but since he is still in the hospital was not able to attend. Eliquis to be started today, now 3 days post-pacer. Reassured patient incision healing and Steri-Strips should remain in place. Reviewed
activity restrictions status post new device. Patient to go to rehab facility today, discharge pending repeat sodium level, was 130 this morning. Has a follow-up with primary head transfer clerk scheduled for 06/18/2024.
[2024-06-03] MEDS: LASIX 40 MG PO (15:03)
[2024-06-03 17:39] LABS: Blood Urea Nitrogen 30 mg/dl (9-20); Calcium 9.1 mg/dl (8.4-10.2); Carbon Dioxide 25 mmol/L (22-30); Chloride 93 mmol/L (98-107); Estimated Creatinine Clearance 56 ml/min; Glucose 111 mg/dl (70-99); Potassium 5.2 mmol/L (3.5-5.1); Sodium 126 mmol/L (135-145); eGFR > 60.00
[2024-06-03] MEDS: ELIQUIS 5 MG PO (20:22)
[2024-06-03] MEDS: LIPITOR 20 MG PO (20:23)
[2024-06-03] MEDS: FLOVENT 110 MCG INHALER 2 PUFF INH (20:50)
--- NOTE | 2024-06-03 23:55 | PTCARENOTE ---
Assumed care of the pt @ 1900. Pt AAOx3 LCW pacer site steri strips. Ambulated back to bed from chair 2person assist with rolling walker. Respiratory Therapist placed pt on CPAP machine. V-paced on the monitor VSS. Call burns within reach.
[2024-06-04] VITALS (10 sets, daily range): BP systolic 125–138; BP diastolic 58–97; PULSE 73–75; BMI 33.6
[2024-06-04 03:45] LABS: Hematocrit 30.2 % (39.0-52.0); Hemoglobin 10.5 g/dL (13.0-18.0); Mean Corp Hgb Conc. 34.8 g/dL (33.0-37.0); Mean Corpuscular Hgb 30.3 pg (27.0-31.0); Mean Platelet Volume 10.8 fL (7.4-10.4); Platelet Count 154 10^3/uL (130-400); Red Blood Cell Count 3.47 10^6/uL (4.70-6.10); Red Cell Dist. Width 13.2 % (11.5-14.5); White Blood Cell Count 9.5 10^3/uL (4.8-10.8)
[2024-06-04 04:06] LABS: Blood Urea Nitrogen 28 mg/dl (9-20); Carbon Dioxide 23 mmol/L (22-30); Chloride 94 mmol/L (98-107); Estimated Creatinine Clearance 64 ml/min; Glucose 91 mg/dl (70-99); Potassium 4.7 mmol/L (3.5-5.1); eGFR > 60.00
[2024-06-04 04:13] LABS: Sodium 125 mmol/L (135-145)
[2024-06-04] MEDS: FLOVENT 110 MCG INHALER 2 PUFF INH ×2 (08:59→20:19)
[2024-06-04] MEDS: ELIQUIS 5 MG PO ×2 (10:05→21:05)
[2024-06-04] MEDS: VITAMIN B-12 1000 MCG PO (10:05)
[2024-06-04] MEDS: TENORMIN 25 MG PO (10:06)
[2024-06-04] MEDS: THERAGRAN 1 TABLET PO (10:06)
[2024-06-04] MEDS: PROTONIX 40 MG PO (10:06)
[2024-06-04] MEDS: MIRALAX 17 GRAMS PO (10:07)
[2024-06-04] MEDS: FEOSOL 325 MG PO (10:07)
[2024-06-04] MEDS: VITAMIN D3 (cholecalciferol) 50 MCG PO (10:07)
[2024-06-04] MEDS: NEURONTIN 100 MG PO (10:07)
--- NOTE | 2024-06-04 10:40 | W.CON.NEPH ---
Consultation
-
Date/Time Consultation Requested: June 04, 2024 at 9 AM
Date/Time Consultation Performed: June 04, 2024 at 10:30 AM
Requesting Provider: Dr. Shell
Performing Provider: Dr. Maxwell Huntley
Reason for Consultation: Hyponatremia
Medical History
-
Chief Complaint: Hyponatremia
History of Present Illness:
84-year-old male past medical history of chronic HFpEF, hypertension, hyperlipidemia, restrictive lung disease, tracheomalacia, obstructive sleep apnea, obesity, GERD, chronic hyponatremia, prediabetes presented to [facility] 2 days ago for
syncopal episode at home. In the emergency room he was found to be in new onset atrial fibrillation with heart rate of 60s. He was transferred to [facility] for pacemaker.
Renal consult for hyponatremia acute on chronic with a sodium of 125. Admitted with a sodium of 128.
Past Medical History
chronic HFpEF, hypertension, hyperlipidemia, restrictive lung disease, tracheomalacia, obstructive sleep apnea, obesity, GERD, chronic hyponatremia, prediabetes
Social History
Tobacco: Non-Smoker
Family History
Family History: Not Pertinent
Allergies / Home Medications
Allergy/AdvReac Type Severity Reaction Status Date / Time
No Known Allergies Allergy Verified 05/31/24 10:57
�Medication �Instructions �Recorded �Confirmed �Type
acetaminophen 500 mg capsule 500 mg PO DAILYPRN PRN pain score 05/31/24 05/31/24 History
1-3
albuterol sulfate 90 mcg/actuation 2 inh inhalation QID PRN 05/31/24 05/31/24 History
breath activated powder inhaler bronchospasm
(ProAir RespiClick)
atenolol 25 mg tablet 25 mg PO DAILY Blood Pressure 05/31/24 05/31/24 History
atorvastatin 20 mg tablet 20 mg PO HS High Cholesterol 05/31/24 05/31/24 History
cholecalciferol (vitamin D3) 50 50 mcg PO DAILY Supplement 05/31/24 05/31/24 History
mcg (2,000 unit) tablet
cyanocobalamin (vitamin B-12) 1,000 mcg PO DAILY Supplement 05/31/24 05/31/24 History
1,000 mcg tablet (Vitamin B-12)
esomeprazole magnesium 40 mg 40 mg PO DAILY Gastrointestinal 05/31/24 05/31/24 History
capsule,delayed release Issue
fluticasone furoate 200 1 inh inhalation DAILY 05/31/24 05/31/24 History
mcg/actuation blister powder for Lung/Breathing Issues
inhalation
furosemide 40 mg tablet 40 mg PO MOWEFR Fluid 05/31/24 05/31/24 History
Retention/Swelling
gabapentin 100 mg capsule 100 mg PO DAILY Pain 05/31/24 05/31/24 History
iron, carbonyl 45 mg tablet 45 mg PO DAILY Supplement 05/31/24 05/31/24 History
multivitamin with minerals-folic 1 tab PO DAILY Supplement 05/31/24 05/31/24 History
acid 80 mcg chewable tablet
(Centrum Adult 50 Plus)
polyethylene glycol 3350 17 gram 17 g PO DAILY Constipation 05/31/24 05/31/24 History
oral powder packet (Miralax)
spironolactone 50 mg tablet 50 mg PO DAILY Heart Failure 05/31/24 05/31/24 History
valsartan 160 mg tablet 160 mg PO BID Blood Pressure 05/31/24 05/31/24 History
apixaban 5 mg tablet (Eliquis) 5 mg PO BID #60 tabs 06/02/24 Rx
Review of Systems
-
No chest pain or shortness of breath, positive leg swelling
All other systems: Negative unless noted
Physical Exam
Vital Signs
Vital Signs
Temp Pulse Resp BP Pulse Ox
97.5 F 71 16 130/59 99
06/04/24 08:32 06/04/24 09:00 06/04/24 09:00 06/04/24 02:54 06/04/24 08:32
Lab Results
WBC 9.5 10^3/uL (4.8-10.8) 06/04/24 03:01
RBC 3.47 10^6/uL (4.70-6.10) L 06/04/24 03:01
Hgb 10.5 g/dL (13.0-18.0) L 06/04/24 03:01
Hct 30.2 % (39.0-52.0) L 06/04/24 03:01
Plt Count 154 10^3/uL (130-400) 06/04/24 03:01
Sodium 125 mmol/L (135-145) L 06/04/24 03:01
Potassium 4.7 mmol/L (3.5-5.1) 06/04/24 03:01
Chloride 94 mmol/L (98-107) L 06/04/24 03:01
Carbon Dioxide 23 mmol/L (22-30) 06/04/24 03:01
BUN 28 mg/dl (9-20) H 06/04/24 03:01
Creatinine 0.7 mg/dL (0.7-1.3) 06/04/24 03:01
eGFR > 60.00 06/04/24 03:01
Glucose 91 mg/dl (70-99) 06/04/24 03:01
Calcium 9.0 mg/dl (8.4-10.2) 06/04/24 03:01
Albumin 3.0 g/dl (3.5-5.0) L 06/01/24 03:08
Physical Exam
General no acute distress
HEENT no cephalic atraumatic extraocular muscle intact no scleral icterus no JVD neck supple
lungs fine crackles
heart regular S1-S2 positive
abdomen soft nontender positive bowel sounds
extremities edema bilateral
Neurologically nonfocal alert and oriented x 3
Skin no lesions no abrasions no petechiae
Psych normal affect no bizarre behavior
Data Reviewed
-
Radiology: Image Personally Visualized and interpreted
Assessment/Plan
-
84-year-old male past medical history of chronic HFpEF, hypertension, hyperlipidemia, restrictive lung disease, tracheomalacia, obstructive sleep apnea, obesity, GERD, chronic hyponatremia, prediabetes presented to [facility] 2 days ago for
syncopal episode at home. Status post pacemaker.
Renal consult for acute on chronic hyponatremia of 125.
Impression.
Hyponatremia.
Status post pacemaker 06/03.
COPD.
Sleep apnea.
Heart failure stable.
Plan.
Admitted with a sodium of 128 down to 125 with increased weights.
Agree with restarting Lasix.
Will give 1 dose of tolvaptan.
Fluid restrict.
Would hold spironolactone at this time.
Repeat labs this evening
Discussed case with primary hospitalist
[2024-06-04] MEDS: SAMSCA 7.5 MG PO (11:27)
--- NOTE | 2024-06-04 12:33 | CM ---
Reviewed chart. Met with Mr. Velez and his son and [id number] to review discharge plans. [facility] sent to [facility], [facility] and [facility]. [facility] state they do not have a bed. [facility] not sure if
they will have a bed. Awaiting to rear back from other referral. Updated [facility] Liaison that he is not ready today. Medicl work-up in progress. The discharge plan is to go to SNF/Rehab. when bed available and medically stable.
[2024-06-04] MEDS: DESENEX/MITRAZOL/ZEASORB 1 APPLIC TOPICAL ×2 (14:38→21:06)
--- NOTE | 2024-06-04 15:10 | W.PN.HOSP.TC ---
Today's Communication/Plan
-
Tolvaptan
Continue Lasix
Follow-up BMP
Pain control
Neurosurgery outpatient evaluation
Assessment / Plan
Assessment / Plan
84yo M with PMHx of HLD, HTN, tracheomalacia, COPD, GERD, HFpEF, SAUL, chronic hyponatremia admitted to [facility] for syncope, found new onset Afib with slow ventricular response and transferred to for PPM, which was placed on 06/01/24 and confirmed
functioning appropriately. Eliquis to be reatrted on 06/03/24 after incision check. CM for rehab. medically stable for d/c
A/P:
#Afib with slow ventricular response
s/p PPM
telemetry
start DOAC
#Ambulatory deficiency
PT/OT
#acute on Chronic hyponatremia
-resumed lasix
-fluid restriction
-Tolvaptan today
-Renal consulted
-monitor bmp
#Chronic HFpEF
#SAUL
#COPD not in exacerbation
#HLD
#Essential HTN
cont home meds
-do not resume spironolactone - can exacerbate hyponatremia
#Lower back pain
#Spinal canal stenosis
-no urinary/fecal incontinence
-PT/OT
-Severe chronic spinal canal stenoses from L3 through S1, most pronounced at the L5-S1 level in part secondary to grade 2 degenerative anterolisthesis.
-F/u Neurosurgery outpt
-pain control
#Mild anemia
ouptatient follow up with PCP
DVT ppx eliquis
Full code
Total time spent on today's encounter was 50 minutes which included time spent in counseling the patient/family regarding diagnosis and treatment plan as listed above, goals of care, and symptom management. Case was discussed with nursing staff,
specialists, and care coordinators/case management. All labs and imaging personally reviewed by me. Remainder the time spent in detailed review of previous records, lab data, imaging, and other medical provider documentation.
Anticipated Discharge: 24 - 48 hours
Subjective/Interval History
-
Date of Service: June 04, 2024
No acute events
Objective Data
-
Labs:
Laboratory Results
06/04/24
03:01
WBC 9.5
Hgb 10.5 L
Hct 30.2 L
Plt Count 154
Sodium 125 L
Potassium 4.7
Chloride 94 L
Carbon Dioxide 23
BUN 28 H
Creatinine 0.7
Glucose 91
Calcium 9.0
Vital Signs:
Vital Signs
Temp Pulse Resp BP Pulse Ox
97.5 F 71 16 130/59 99
06/04/24 08:32 06/04/24 09:00 06/04/24 09:00 06/04/24 02:54 06/04/24 08:32
I&O
06/03/24 06/04/24 06/05/24
06:59 06:59 06:59
Intake Total 960 / 960
Output Total 1000 / 1000 1275 / 1275 100 / 100
Balance -40 / -40 -1275 / -1275 -100 / -100
Review of Systems
-
History Source: Patient
All other systems: Not reviewed unless documented
Physical Exam
-
General: No Apparent Distress
HEENT: Normocephalic
Cardiac: Regular Rhythm
GI: Soft, Nontender and Nondistended
Neuro: Awake, Alert, Oriented and AO x 3
Psych: Calm
Data Reviewed
-
Diagnostic Radiology: Report Reviewed by me
CT Scan: Report Reviewed by me
Labs: Labs Reviewed by me
[2024-06-04 18:48] LABS: Blood Urea Nitrogen 24 mg/dl (9-20); Calcium 9.3 mg/dl (8.4-10.2); Carbon Dioxide 26 mmol/L (22-30); Chloride 92 mmol/L (98-107); Estimated Creatinine Clearance 64 ml/min; Glucose 95 mg/dl (70-99); Potassium 4.4 mmol/L (3.5-5.1); Sodium 126 mmol/L (135-145); eGFR > 60.00
--- NOTE | 2024-06-04 19:19 | PTCARENOTE ---
Pt sat OOB in chair all day, walked to Br w/ assist and RW, maame well, slow moving.
[2024-06-04] MEDS: LIPITOR 20 MG PO (21:05)
[2024-06-05 00:08] VITALS: PULSE 78
--- NOTE | 2024-06-05 01:34 | PTCARENOTE ---
Addendum entered by Nadia West RN 06/05/24 01:47:
Left chest wall pacer site steri strips c/d/i.
Original Note:
Assumed care of the pt @1900. Pt AAOx3 V paced on the monitor VSS CPAP for sleep. Ambulated back to bed with 2 person assist with rolling walker. Call burns within reach.
[2024-06-05 04:30] VITALS: BP 130/57
[2024-06-05 05:00] LABS: Hematocrit 31.5 % (39.0-52.0); Hemoglobin 10.8 g/dL (13.0-18.0); Mean Corp Hgb Conc. 34.3 g/dL (33.0-37.0); Mean Corpuscular Hgb 30.2 pg (27.0-31.0); Mean Platelet Volume 10.6 fL (7.4-10.4); Platelet Count 180 10^3/uL (130-400); Red Blood Cell Count 3.58 10^6/uL (4.70-6.10); Red Cell Dist. Width 13.2 % (11.5-14.5); White Blood Cell Count 6.8 10^3/uL (4.8-10.8)
[2024-06-05 05:21] LABS: Blood Urea Nitrogen 22 mg/dl (9-20); Calcium 9.2 mg/dl (8.4-10.2); Carbon Dioxide 24 mmol/L (22-30); Chloride 98 mmol/L (98-107); Estimated Creatinine Clearance 64 ml/min; Glucose 82 mg/dl (70-99); Potassium 4.7 mmol/L (3.5-5.1); Sodium 130 mmol/L (135-145); eGFR > 60.00
[2024-06-05] MEDS: FLOVENT 110 MCG INHALER 2 PUFF INH (07:09)
[2024-06-05 08:12] VITALS: BP 115/54
--- NOTE | 2024-06-05 09:08 | W.PN.NEPH.PH ---
Today's Communication / Plan
-
Placed back fluid restriction
Follow BMP
Continue oral Lasix
Assessment/Plan
-
84-year-old male past medical history of chronic HFpEF, hypertension, hyperlipidemia, restrictive lung disease, tracheomalacia, obstructive sleep apnea, obesity, GERD, chronic hyponatremia, prediabetes presented to [facility] 2 days ago for
syncopal episode at home. Status post pacemaker.
Renal consult for acute on chronic hyponatremia of 125.
Impression.
Hyponatremia.
Status post pacemaker 06/03.
COPD.
Sleep apnea.
Heart failure stable.
Plan.
Admitted with a sodium of 128 down to 125 with increased weights, was given Samsca yesterday and now sodium up to 130
Greater than 2 L urine output yesterday
Lasix was reinitiated at 40 mg p.o. Monday by cardiology yesterday
Fluid restriction placed at 48 ounces daily
-
-
Date of Service: June 05, 2024
CC / HPI / ROS
-
Chief Complaint:
Hyponatremia
History of Present Illness:
Serum sodium level up to 130 following Samsca administration on 06/04/2024
Remains on Lasix for chronic hyponatremia
s/p pacer
Review of Systems:
No reported chest pain or shortness of breath
Nonoliguric
Labs
-
Labs:
WBC 6.8 10^3/uL (4.8-10.8) 06/05/24 04:42
RBC 3.58 10^6/uL (4.70-6.10) L 06/05/24 04:42
Hgb 10.8 g/dL (13.0-18.0) L 06/05/24 04:42
Hct 31.5 % (39.0-52.0) L 06/05/24 04:42
Plt Count 180 10^3/uL (130-400) 06/05/24 04:42
Sodium 130 mmol/L (135-145) L 06/05/24 04:42
Potassium 4.7 mmol/L (3.5-5.1) 06/05/24 04:42
Chloride 98 mmol/L (98-107) 06/05/24 04:42
Carbon Dioxide 24 mmol/L (22-30) 06/05/24 04:42
BUN 22 mg/dl (9-20) H 06/05/24 04:42
Creatinine 0.7 mg/dL (0.7-1.3) 06/05/24 04:42
eGFR > 60.00 06/05/24 04:42
Glucose 82 mg/dl (70-99) 06/05/24 04:42
Calcium 9.2 mg/dl (8.4-10.2) 06/05/24 04:42
Albumin 3.0 g/dl (3.5-5.0) L 06/01/24 03:08
Physical Exam
-
Vital Signs:
Vital Signs
Temp Pulse Resp BP Pulse Ox
97.7 F 73 16 115/54 97
06/05/24 08:14 06/05/24 08:12 06/05/24 08:14 06/05/24 08:12 06/05/24 08:14
Cardiovascular:: Regular rate and rhythm
Respiratory:: Bilateral: CTA
Lung Excursion:: Normal
Abdomen:: Nontender and Soft
Bowel Sounds:: Normal
Extremity Edema:: +1: Bilateral:
Barrett Catheter: No
[2024-06-05] MEDS: PROTONIX 40 MG PO (09:55)
[2024-06-05] MEDS: TENORMIN 25 MG PO (09:55)
[2024-06-05] MEDS: ELIQUIS 5 MG PO (09:55)
[2024-06-05] MEDS: MIRALAX 17 GRAMS PO (09:55)
[2024-06-05] MEDS: FEOSOL 325 MG PO (09:55)
[2024-06-05] MEDS: NEURONTIN 100 MG PO (09:55)
[2024-06-05] MEDS: VITAMIN D3 (cholecalciferol) 50 MCG PO (09:56)
[2024-06-05] MEDS: VITAMIN B-12 1000 MCG PO (09:56)
[2024-06-05] MEDS: THERAGRAN 1 TABLET PO (09:56)
[2024-06-05] MEDS: DESENEX/MITRAZOL/ZEASORB 1 APPLIC TOPICAL (09:57)
[2024-06-05] MEDS: FLUSH (NSS) 2 FLUSH IV (09:57)
[2024-06-05 11:48] VITALS: BP 109/62
--- NOTE | 2024-06-05 12:46 | PTCARENOTE ---
Received patient this morning resting in bed. Required assistance of two to transfer from the bed to the commode and is now resting in the recliner chair. Patient having difficulty with transfers and becomes dyspneic with exertion. Sitting oob in
the chair now, call burns in reach.
--- NOTE | 2024-06-05 13:06 | CM ---
Addendum entered by Zeny Corea 06/05/24 14:04:
Unit Sec. made ambulance arrangements with [facility] for 4:00 p.m. pock up. Telephone call to [id number] to review transfer date and time. Updated Henry at Rehab. at [facility] with transfer date and time. The discharge plan is
to go to Rehab. at [facility] when medically stable.
Original Note:
Reviewed chart. Rweceived message from attending physician that Mr. Velez is ready for transfer to SNF Today. Telephone call to Rehab at [facility] who confirms ability to accept today. The fax number for discharge instructions is
([phone])and the report phone number is [phone]) He is going to room 5347. Telephone call to [id number], ([phone]) to update her. She is agreeable to transfer to Rehab. at [facility]. She is aware that it may be today. Met with
Mr. Velez to update him regarding transfer to Rehab. at [facility] today. Medical work-up in progress. The discharge plan is to go to Rehab. at [facility] when medically stable.
--- NOTE | 2024-06-05 14:10 | W.PN.HOSP.TC ---
Addendum entered and electronically signed by Ricky Shell MD 06/06/24 17:06:
[id number]
Original Note:
Today's Communication/Plan
-
monitor bmp in 3-5 days (sodium)
dc to rehab
f/u cards, pcp, cards, nsg outpt
hold losartan, aldactone
doac
Assessment / Plan
Assessment / Plan
84yo M with PMHx of HLD, HTN, tracheomalacia, COPD, GERD, HFpEF, SAUL, chronic hyponatremia admitted to [facility] for syncope, found new onset Afib with slow ventricular response and transferred to for PPM, which was placed on 06/01/24 and confirmed
functioning appropriately. Eliquis to be reatrted on 06/03/24 after incision check. CM for rehab. medically stable for d/c
A/P:
#Afib with slow ventricular response
s/p PPM
telemetry
start DOAC
#Ambulatory deficiency
PT/OT
#acute on Chronic hyponatremia
-resumed lasix
-fluid restriction
-Tolvaptan 06/04
-Renal consulted
-monitor bmp closely outpatient
� Prescription
� Do not resume spironolactone, can exacerbate hyponatremia
#Chronic HFpEF
#SAUL
#COPD not in exacerbation
#HLD
#Essential HTN
cont home meds
-do not resume spironolactone - can exacerbate hyponatremia
�Lasix
#Lower back pain
#Spinal canal stenosis
-no urinary/fecal incontinence
-PT/OT
-Severe chronic spinal canal stenoses from L3 through S1, most pronounced at the L5-S1 level in part secondary to grade 2 degenerative anterolisthesis.
-F/u Neurosurgery outpt
-pain control
#Mild anemia
ouptatient follow up with PCP
DVT ppx eliquis
Full code
More than 30 minutes spent in discharge including
Final examination of the patient
Summarizing hospital stay
Instructions for continuing care to all relevant caregivers
Preparation of discharge records, prescriptions, and referral forms
Total time spent (37 in minutes):
Anticipated Discharge: Today
Subjective/Interval History
-
Date of Service: June 05, 2024
No acute events, sodium improved
Objective Data
-
Labs:
Laboratory Results
06/05/24
04:42
WBC 6.8
Hgb 10.8 L
Hct 31.5 L
Plt Count 180
Sodium 130 L
Potassium 4.7
Chloride 98
Carbon Dioxide 24
BUN 22 H
Creatinine 0.7
Glucose 82
Calcium 9.2
Vital Signs:
Vital Signs
Temp Pulse Resp BP Pulse Ox
97.8 F 70 18 109/62 99
06/05/24 11:46 06/05/24 12:00 06/05/24 11:46 06/05/24 11:48 06/05/24 11:46
I&O
06/04/24 06/05/24 06/06/24
06:59 06:59 06:59
Intake Total 240 / 240
Output Total 1275 / 1275 1925 / 1925 350 / 350
Balance -1275 / -1275 -1925 / -1925 -110 / -110
Review of Systems
-
History Source: Patient
All other systems: Not reviewed unless documented
Data Reviewed
-
Diagnostic Radiology: Report Reviewed by me
CT Scan: Report Reviewed by me
Labs: Labs Reviewed by me
--- NOTE | 2024-06-05 14:14 | W.DS.TRANS ---
DC Summary - [employer]
-
Discharge Instructions:
Discharge Diagnosis/Procedures Pacemaker implant
Hyponatremia
Lower back pain
Spinal canal stenosis
Diet Low Cholesterol,Low Fat,Restrict fluids to 48 oz
Activity As tolerated
Driving Restrictions No driving for 1 week
Bathing Restrictions OK to Shower
Blood Work cbc and bmp in 3-5 days (especially monitoring
sodium)
Instructions:
Stand-Alone Forms: DC Inst - Implanted Device
Changes to Home Medications: Yes
Discharge Medications:
DC Medications w/original date entered in [employer]
acetaminophen 500 mg capsule 500 mg PO DAILYPRN PRN pain score 1-3 05/31/24
albuterol sulfate 90 mcg/actuation breath activated powder inhaler (ProAir RespiClick) 2 inh inhalation QID PRN bronchospasm 05/31/24
atenolol 25 mg tablet 25 mg PO DAILY Blood Pressure 05/31/24
atorvastatin 20 mg tablet 20 mg PO HS High Cholesterol 05/31/24
cholecalciferol (vitamin D3) 50 mcg (2,000 unit) tablet 50 mcg PO DAILY Supplement 05/31/24
cyanocobalamin (vitamin B-12) 1,000 mcg tablet (Vitamin B-12) 1,000 mcg PO DAILY Supplement 05/31/24
esomeprazole magnesium 40 mg capsule,delayed release 40 mg PO DAILY Gastrointestinal Issue 05/31/24
fluticasone furoate 200 mcg/actuation blister powder for inhalation 1 inh inhalation DAILY Lung/Breathing Issues 05/31/24
furosemide 40 mg tablet 40 mg PO MOWEFR Fluid Retention/Swelling 05/31/24
gabapentin 100 mg capsule 100 mg PO DAILY Pain 05/31/24
iron, carbonyl 45 mg tablet 45 mg PO DAILY Supplement 05/31/24
multivitamin with minerals-folic acid 80 mcg chewable tablet (Centrum Adult 50 Plus) 1 tab PO DAILY Supplement 05/31/24
polyethylene glycol 3350 17 gram oral powder packet (Miralax) 17 g PO DAILY Constipation 05/31/24
apixaban 5 mg tablet (Eliquis) 5 mg PO BID #60 tabs 06/02/24
miconazole nitrate 2 % topical powder (Miconazorb AF) 1 applic topical BID #0 grams 06/05/24
Home Medication Changes
apixaban 5 mg tablet (Eliquis) 5 mg PO BID #60 tabs 06/02/24
miconazole nitrate 2 % topical powder (Miconazorb AF) 1 applic topical BID #0 grams 06/05/24
stop losartan, aldactone
Pending Results: No
[2024-06-05 15:12] VITALS: BP 119/67
[2024-06-05 15:15] VITALS: BP 119/67
[2024-06-05] MEDS: LASIX 40 MG PO (15:15)
--- NOTE | 2024-06-05 16:18 | PTCARENOTE ---
Report telephoned to SNF facility, the patient's family will meet him at [facility]. Patient transferred to SNF with his belongings by ambulance stretcher.
== END 2024-06-05 16:46 | DRG 243 ==
LOC: IVU 12:43
PROVIDERS: Internal Medicine; Internal Medicine Interventional Cardiology; ADMITTING PHYSICIAN Hospitalist; ATTENDING PHYSICIAN Internal Medicine; CONSULT PHYSICIAN Internal Medicine Cardiovascular Disease; OTHER PHYSICIAN Internal Medicine Nephrology
PROC: 0JH606Z Insertion of Pacemaker, Dual Chamber into Chest Subcutaneous Tissue and Fascia, Open Approach (ICD-10-PCS; 2024-05-31)
PROC: 4A023N6 Measurement of Cardiac Sampling and Pressure, Right Heart, Percutaneous Approach (ICD-10-PCS; 2024-05-31)
PROC: 02HK3JZ Insertion of Pacemaker Lead into Right Ventricle, Percutaneous Approach (ICD-10-PCS; 2024-05-31)
PROC: 02H63JZ Insertion of Pacemaker Lead into Right Atrium, Percutaneous Approach (ICD-10-PCS; 2024-05-31)
PROC: B2141ZZ Fluoroscopy of Right Heart using Low Osmolar Contrast (ICD-10-PCS; 2024-05-31)
PROC: 5A09357 Assistance with Respiratory Ventilation, Less than 24 Consecutive Hours, Continuous Positive Airway Pressure (ICD-10-PCS; 2024-06-04)
DX: I48.91 Unspecified atrial fibrillation (principal); E87.1 Hypo-osmolality and hyponatremia; I50.32 Chronic diastolic (congestive) heart failure; R00.1 Bradycardia, unspecified; R55 Syncope and collapse; I11.0 Hypertensive heart disease with heart failure; E78.00 Pure hypercholesterolemia, unspecified; J39.8 Other specified diseases of upper respiratory tract; H70.92 Unspecified mastoiditis, left ear; E03.9 Hypothyroidism, unspecified; J98.4 Other disorders of lung; R73.03 Prediabetes; G47.33 Obstructive sleep apnea (adult) (pediatric); K21.9 Gastro-esophageal reflux disease without esophagitis; I95.9 Hypotension, unspecified; J44.9 Chronic obstructive pulmonary disease, unspecified; M48.07 Spinal stenosis, lumbosacral region; M51.370 Other intervertebral disc degeneration, lumbosacral region with discogenic back pain only; D64.9 Anemia, unspecified; R74.01 Elevation of levels of liver transaminase levels; E66.9 Obesity, unspecified; W18.39XA Other fall on same level, initial encounter; Y93.01 Activity, walking, marching and hiking; Y92.009 Unspecified place in unspecified non-institutional (private) residence as the place of occurrence of the external cause; Z68.33 Body mass index [BMI] 33.0-33.9, adult
CPT/HCPCS: 33208; 71045; 72100; 72131; 72192; 73523; 73700; 80048; 80053; 82962; 85025; 85027; 87070; 93005; 93451; 94640; 94660; 97110; 97163; 97167; 97530; C1769; C1785; C1887; C1892; C1898; Q9967